=== PATIENT | male | born 1930 ===

== ENCOUNTER 2017-04-08 07:31 | Emergency (ER) | payer MEDICARE ==
[2017-04-08 08:20] VITALS: BP 137/76
--- NOTE | 2017-04-08 08:46 | UC ---
Ear Complaint HPI - HPI Summary HPI Summary: The patient comes in today for: 1. Right ear pain: Onset: Yesterday. Palliative/provocative: Nothing makes the ear pain better or worse. Quality: Ache. Region: Right ear. Severity: 4/10 Time: Constant Associated symptoms: Previous ear problems: NOne. Hearing: He wears hearing aids, but still "pretty good." Discharge: None. Vertigo: None. * - History of Current Complaint Chief Complaint: UCEar Stated Complaint: EAR COMPLAINT-PAIN/SWELLING Time Seen by Provider: 04/08/17 08:41 Hx Obtained From: Patient - Allergies/Home Medications Allergies/Adverse Reactions: Allergies Allergy/AdvReac Type Severity Reaction Status Date / Time No Known Allergies Allergy Verified 04/08/17 08:05 Home Medications: Home Medications Amlodipine Besylate [Norvasc 5 mg tab] DAILY 04/08/17 [History] Aspirin [Aspirin Adult Low Strengt] 04/08/17 [History] Atenolol [Tenormin 25 MG] 12.5 mg DAILY 04/08/17 [History Confirmed 04/08/17] Atorvastatin* [Lipitor 20 MG*] 04/08/17 [History] Esomeprazole Magnesium [Nexium] DAILY 04/08/17 [History] Finasteride [Proscar] DAILY 04/08/17 [History] Fluticasone Furoate [Flonase Sensimist] 04/08/17 [History] Ramipril [Altace] DAILY 04/08/17 [History] Sildenafil Citrate [Viagra] 50 mg 04/08/17 [History] Tamsulosin HCl [Flomax] DAILY 04/08/17 [History] Timolol [Betimol] 04/08/17 [History] Tramadol HCl [Ultram] PRN 04/08/17 [History] celeCOXIB CAP* [Celebrex CAP*] DAILY 04/08/17 [History] PMH/Surg Hx/FS Hx/Imm Hx Previously Healthy: Yes - BPH, ED, Glaucoma, Back and knee pain. Endocrine History Of: Reports: Dyslipidemia Denies: Diabetes, Thyroid Disease, Hyperthyroidism, Hypothyroidism Cardiovascular History Of: Reports: Cardiac Disorders - One stent., Hypertension Denies: Pacemaker/ICD, Myocardial Infarction, Congestive Heart Failure, Atrial Fibrillation, Deep Vein Thrombosis, Bleeding Disorders Respiratory History Of: Denies: COPD, Asthma, Bronchitis, Pneumonia, Pulmonary Embolism GI/ History Of: Reports: Gastroesophageal Reflux Denies: Ulcer, Gastrointestinal Bleed, Gall Bladder Disease, Kidney Stones, Diverticulitis, Renal Disease, Urosepsis Neurological History Of: Denies: TIA, CVA, Dementia, Seizures, Migraine Psychological History Of: Denies: Anxiety, Depression, Bipolar Disorder, Schizophrenia, Post Traumatic Stress Disorder Cancer History Of: Denies: Lung Cancer, Colorectal Cancer, Breast Cancer, Prostate Cancer Other History Of: Anticoagulant Therapy - Aspirin daily. Negative For: HIV, Hepatitis B, Hepatitis C - Surgical History Surgical History: Yes Surgery Procedure, Year, and Place: toe surgery. knee arthroscopy. parathyroid surgery - Family History Known Family History: Positive: Hypertension Negative: Cardiac Disease - Social History Occupation: Retired Alcohol Use: Daily Alcohol Amount: 3 ounces per day Substance Use Type: None Smoking Status (MU): Never Smoked Tobacco Review of Systems Constitutional: Negative Skin: Negative Eyes: Negative ENT: Ear Ache Respiratory: Negative Cardiovascular: Negative Gastrointestinal: Negative Genitourinary: Negative All Other Systems Reviewed And Are Negative: Yes Physical Exam Triage Information Reviewed: Yes Appearance: Well-Appearing, No Pain Distress, Well-Nourished Vital Signs: Initial Vital Signs Temp 97.4 F 04/08/17 08:05 Pulse 56 04/08/17 08:05 Resp 18 04/08/17 08:05 BP 137/76 04/08/17 08:05 Pulse Ox 95 04/08/17 08:05 Vital Signs Reviewed: Yes Eyes: Positive: Conjunctiva Clear. Negative: Discharge ENT: Negative: Pharyngeal erythema, Nasal congestion, Nasal drainage, TM bulging , TM dull, TM red, Tonsillar swelling, Tonsillar exudate Dental: Negative: Gross Decay/Caries @, Dental Fracture @ Neck: Positive: Supple, Nontender, No Lymphadenopathy. Negative: Nuchal Rigidity Respiratory: Positive: Lungs clear, No respiratory distress, No accessory muscle use. Negative: Crackles, Wheezing Cardiovascular: Positive: RRR, No Murmur Abdomen Description: Positive: Nontender, No Organomegaly, Soft. Negative: Distended, Guarding Musculoskeletal: Positive: Strength Intact, ROM Intact Neurological: Positive: Alert, Muscle Tone Normal Psychological: Positive: Age Appropriate Behavior, Consolable Skin: Positive: rashes - He has a tender right ear lobe. There are several 2-3 mm breaks in the skin with one grouping having a impetigious appearance with honey color crust. The lymph node below the ear of the right lateral neck was tender. There was no right ear canal erythema or edema or redness of the right TM. Ear Complaint Course/Dx - Course Course Of Treatment: Patient was told that I thought he had cellulitis of the right ear lobe and the infection was irritating a lymph node below the right ear. - Differential Dx/Diagnosis Differential Diagnosis/HQI/PQRI: Cellulitis Provider Diagnoses: cellulitis right ear lobe with associated lymphadenopathy. Discharge - Discharge Plan Condition: Stable Disposition: HOME Patient Education Materials: Cellulitis (ED) Referrals: Yaya Anthony MD [Primary Care Provider] - If Needed (If you do well, you don't need to be seen by your primary care provider. If you are not improving over the next several days, and particularly if you get worse, please be seen sooner. )
== END 2017-04-08 09:18 | disposition home or self-care (01) ==
LOC: UCEAST 07:31
DX: H60.11 Cellulitis of right external ear (principal); R59.1 Generalized enlarged lymph nodes; E78.5 Hyperlipidemia, unspecified; I10 Essential (primary) hypertension; K21.9 Gastro-esophageal reflux disease without esophagitis; Z79.82 Long term (current) use of aspirin
CPT/HCPCS: 99212; G0463

== ENCOUNTER 2017-04-11 07:03 | Emergency (ER) | payer MEDICARE ==
[2017-04-11 07:13] VITALS: BP 125/60
--- NOTE | 2017-04-11 07:45 | UC ---
Gerard Aguilar Salem, scribed for Erica Smith MD on 04/11/17 at 0727 . Skin Complaint HPI - HPI Summary HPI Summary: Patient is a 87 y/o M who presents to the with 7/10 right ear pain since 4 days ago. He reports edema, pruritus, and drainage from skin (drainage before beginning abx) from the right ear, but denies fever or any changes to hearing. He also denies any sx in left ear. Pt was seen at with 4/10 ear pain and similar sx 3 days ago. He was put on Cephalexin and Bactrim for cellulitis. He states that sx initially improved yesterday, but has worsened since, with recurrent swelling in the ear lobe. Pt also reports nausea due to abx. 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 Patients medication reviewed this visit. - History of Current Complaint Stated Complaint: SKIN COMPLAINT Hx Obtained From: Patient Onset/Duration: Gradual Onset, Lasting Days, Still Present Timing: Constant Onset Severity: Moderate Current Severity: Moderate Pain Intensity: 7 Pain Scale Used: 0-10 Numeric Location: Ear (Right) Character: Swelling, Pruritus, Pain, Redness Aggravating: Nothing Alleviating: Heat, Other - Abx. Associated Signs & Symptoms: Positive: Nausea - Due to abx. - Allergy/Home Medications Allergies/Adverse Reactions: Allergies Allergy/AdvReac Type Severity Reaction Status Date / Time No Known Allergies Allergy Verified 04/11/17 07:19 Review of Systems Constitutional: Negative Skin: Negative Eyes: Negative ENT: Ear Ache - Right ear: edema, pruritus, pain, and drainage. Negative left ear., Other - No changes to hearing. Respiratory: Negative, Other - n Cardiovascular: Negative Gastrointestinal: Other - Nausea due to abx, but no diarrhea. Genitourinary: Negative Motor: Negative Neurovascular: Negative Musculoskeletal: Negative Neurological: Negative Psychological: Negative All Other Systems Reviewed And Are Negative: Yes PMH/Surg Hx/FS Hx/Imm Hx - Additional Past Medical History Additional PMH: glaucoma, BPH. Cardiovascular History: Cardiac Disease, Hypertension Other History Of: Anticoagulant Therapy - Aspirin daily. Negative For: HIV, Hepatitis B, Hepatitis C - Surgical History Surgical History: Yes Surgery Procedure, Year, and Place: toe surgery. knee arthroscopy. parathyroid surgery - Family History Known Family History: Positive: Hypertension Negative: Cardiac Disease - Social History Occupation: Retired Lives: With Family - at [employer]. Alcohol Use: Daily Alcohol Amount: 3 ounces per day Substance Use Type: None Smoking Status (MU): Never Smoked Tobacco Physical Exam Triage Information Reviewed: Yes Appearance: Well-Appearing, Pain Distress - mild to moderate, increases with palpitation. Vital Signs: Initial Vital Signs Temp 97.6 F 04/11/17 07:09 Pulse 58 04/11/17 07:09 Resp 18 04/11/17 07:09 BP 125/60 04/11/17 07:09 Pulse Ox 97 04/11/17 07:09 Vital Signs Reviewed: Yes Eyes: Positive: Conjunctiva Clear ENT: Positive: Pharynx normal, TMs normal, Other: - right ear pinna has crusts on the lower lobe, and there are several small crusts in the right cheek area and along the right side of the neck. No vesicles. Tender posterior auricular and pre-auricular node enlargement. Dental Exam: Normal Neck: Positive: Enlarged Nodes @ - anterior cervical node enlarged Respiratory: Positive: Chest non-tender, Lungs clear Cardiovascular: Positive: RRR, No Murmur Psychological Exam: Normal Skin Exam: Other - erythema and induratation of the right ear pinnal. No ear canal swelling. Course/Dx - Course Course Of Treatment: change to augmentin and bactroban. - Differential Diagnoses - Skin Complaint Differential Diagnoses: Cellulitis, Varicella Zoster - Diagnoses Provider Diagnoses: cellulitis right ear pinna. Discharge - Discharge Plan Condition: Stable Disposition: HOME Prescriptions: Amoxicillin/Clavulanate TAB* [Augmentin TAB 875*] 875 mg PO BID #20 tab Mupirocin 2% CREAM* [Bactroban 2% CREAM*] 1 applic TOPICAL TID #30 gm Patient Education Materials: Cellulitis (ED) Referrals: Yaya Anthony MD [Primary Care Provider] - Additional Instructions: Discontinue use of cephalexin and bactrim. Begin augmentin 875mg twice daily, and apply topical bactroban 3 times daily to the crusted area on the ear lobe and neck. Continue use of warm moist compresses to the area, and continue tylenol in addition to celebrex for control of pain. The documentation as recorded by the Gerard gilliland Salem accurately reflects the service I personally performed and the decisions made by me, Erica Smith MD.
== END 2017-04-11 07:42 | disposition home or self-care (01) ==
LOC: UCEAST 07:03
DX: H60.11 Cellulitis of right external ear (principal); I10 Essential (primary) hypertension; Z79.82 Long term (current) use of aspirin
CPT/HCPCS: 99212; G0463